=== PATIENT | female | born 1990 | race Caucasian/White ===

== ENCOUNTER 2016-03-04 06:46 | Emergency (ER) | payer MEDICAID ==
[2015-12-09 14:51] VITALS: BMI 24.4
[~2016-03-04 06:46] MED LIST: HYDROCODON-ACE1 EAC7 PO; IBUPROFEN600 MG PO; NEURONTIN 300300 MG PO; NORMODYNE / TR100 MG PO; PAMELOR10 MG PO; PRENATAL COMPLE1 TAB PO; TYLENOL PM1 TAB PO
[2016-03-04 07:53] LABS: BASOPHILS 0.4 % (0.0-2.0); EOSINOPHILS 0.4 % (0-7); HEMATOCRIT 38.3 % (36.0-48.0); HEMOGLOBIN 12.4 g/dL (12-16); IMMATURE GRANULOCYTES 0.3 % (0-5); LYMPHOCYTES 13.6 % (15-50); MCH 26.2 pg (26.0-34.0); MCHC 32.4 g/dL (31.0-37.0); MEAN PLATELET VOLUME 10.3 fL (7.4-10.4); MONOCYTES 2.6 % (2-11); NEUTROPHILS 82.7 % (40-80); RBC 4.73 10x6/uL (4.00-5.40); RDW 15.1 % (11.5-14.5); WBC 11.4 10x3/uL (4.8-10.8)
[2016-03-04 07:54] LABS: ALBUMIN 4.6 g/dL (3.4-5.0); ALKALINE PHOSPHATASE 58 U/L (46-116); ALT (SGPT) 16 U/L (10-68); BILIRUBIN - TOTAL 0.91 mg/dL (0.2-1.3); CALC OSMOLALITY 279 mosm/kg (275-300); CALCIUM 9.2 mg/dL (8.5-10.1); CARBON DIOXIDE 24.5 mmol/L (21.0-32.0); CHLORIDE - SERUM 103 mmol/L (98-107); CREATININE - SERUM 0.8 mg/dL (0.6-1.3); GLUCOSE 108 mg/dL (74-106); LIPASE 90 U/L (73-393); POTASSIUM - SERUM 3.7 mmol/L (3.5-5.1); PROTEIN - SERUM 7.4 g/dL (6.4-8.2); SODIUM 138 mmol/L (136-145); UREA NITROGEN 20 mg/dL (7-18); eGFR NON AFRICAN AMERICAN > 90 mL/min (90-120)
[2016-03-04 07:56] LABS: PLATELET COUNT 392 10x3/uL (130-400)
[2016-03-04 08:06] LABS: APPEARANCE SLT CLOUDY (CLEAR); BACTERIA MODERATE /hpf (NONE SEEN); BILIRUBIN NEGATIVE (NEGATIVE); COLOR YELLOW (YELLOW); GLUCOSE NEGATIVE (NEGATIVE); KETONE NEGATIVE (NEGATIVE); LEUKOCYTE ESTERASE TRACE (NEGATIVE); MUCUS <1+ /lpf (NONE SEEN); NITRITE NEGATIVE (NEGATIVE); PROTEIN 2+ mg/dL (NEGATIVE); RED CELLS - URINE RARE /hpf (0-5); SPECIFIC GRAVITY 1.015 (1.005-1.020); UROBILINOGEN NORMAL (NORMAL); WHITE CELLS - URINE OCC /hpf (0-5)
== END 2016-03-04 08:51 | disposition home or self-care (01) ==
LOC: D.ER 06:46
PROVIDERS: Emergency Medicine
DX: A08.4 Viral intestinal infection, unspecified (principal); E86.0 Dehydration; M79.7 Fibromyalgia; F17.200 Nicotine dependence, unspecified, uncomplicated

== ENCOUNTER 2016-03-09 12:04 | Emergency (ER) | payer MEDICAID ==
[2015-12-09 14:51] VITALS: BMI 24.4
== END 2016-03-09 13:13 | disposition home or self-care (01) ==
LOC: D.ER 12:04
DX: L02.412 Cutaneous abscess of left axilla (principal); M79.7 Fibromyalgia; I10 Essential (primary) hypertension; F17.200 Nicotine dependence, unspecified, uncomplicated

== ENCOUNTER 2016-03-30 17:54 | Emergency (ER) | payer MEDICAID ==
[2015-12-09 14:51] VITALS: BMI 24.4
== END 2016-03-30 21:07 | disposition home or self-care (01) ==
LOC: D.ER 17:54
DX: L02.411 Cutaneous abscess of right axilla (principal); M79.7 Fibromyalgia; I10 Essential (primary) hypertension

== ENCOUNTER 2016-04-11 18:41 | Emergency (ER) | payer MEDICAID ==
[2015-12-09 14:51] VITALS: BMI 24.4
== END 2016-04-11 22:17 | disposition home or self-care (01) ==
LOC: D.ER 18:41
DX: L73.2 Hidradenitis suppurativa (principal); I10 Essential (primary) hypertension

== ENCOUNTER 2016-09-10 16:01 | Emergency (ER) | payer MEDICAID ==
[2015-12-09 14:51] VITALS: BMI 24.4
[2016-09-10 16:50] LABS: BASOPHILS 0.2 % (0-2); EOSINOPHILS 2.6 % (0-7); HEMATOCRIT 32.1 % (36.0-48.0); HEMOGLOBIN 10.2 g/dL (12-16); IMMATURE GRANULOCYTES 0.2 % (0-5); LYMPHOCYTES 23.2 % (15-50); MCH 24.9 pg (26.0-34.0); MCHC 31.8 g/dL (31.0-37.0); MCV 78.5 fL (80.0-100.0); MEAN PLATELET VOLUME 9.7 fL (7.4-10.4); MONOCYTES 6.4 % (2-11); NEUTROPHILS 67.4 % (40-80); RBC 4.09 10x6/uL (4.00-5.40); RDW 17.6 % (11.5-14.5); WBC 10.7 10x3/uL (4.8-10.8)
[2016-09-10 17:19] LABS: PLATELET COUNT 307 10x3/uL (130-400)
[2016-09-10 17:27] LABS: HCG SERUM POSITIVE (NEGATIVE)
== END 2016-09-10 19:55 | disposition home or self-care (01) ==
LOC: D.ER 16:01
PROVIDERS: Emergency Medicine
DX: O20.9 Hemorrhage in early pregnancy, unspecified (principal); O03.4 Incomplete spontaneous abortion without complication; F17.200 Nicotine dependence, unspecified, uncomplicated

== ENCOUNTER 2017-02-04 19:11 | Emergency (ER) | payer MEDICAID ==
[2015-12-09 14:51] VITALS: BMI 24.4
[2017-02-04 19:39] LABS: APPEARANCE TURBID (CLEAR); COLOR RED (YELLOW)
[2017-02-04 19:40] LABS: BACTERIA FEW /hpf (NONE SEEN); BILIRUBIN NEGATIVE (NEGATIVE); EPITHELIAL CELLS RARE /hpf (0-5); GLUCOSE NEGATIVE (NEGATIVE); KETONE NEGATIVE (NEGATIVE); NITRITE NEGATIVE (NEGATIVE); PROTEIN 2+ mg/dL (NEGATIVE); RED CELLS - URINE >50 /hpf (0-5); UROBILINOGEN NORMAL (NORMAL)
[2017-02-04 20:20] LABS: BASOPHILS 0.7 % (0-2); EOSINOPHILS 2.9 % (0-7); HEMATOCRIT 31.1 % (36.0-48.0); HEMOGLOBIN 9.5 g/dL (12-16); IMMATURE GRANULOCYTES 0.2 % (0-5); LYMPHOCYTES 25.2 % (15-50); MCH 21.5 pg (26.0-34.0); MCHC 30.5 g/dL (31.0-37.0); MCV 70.4 fL (80.0-100.0); MEAN PLATELET VOLUME 9.4 fL (7.4-10.4); MONOCYTES 8.9 % (2-11); NEUTROPHILS 62.1 % (40-80); RBC 4.42 10x6/uL (4.00-5.40); RDW 16.6 % (11.5-14.5)
[2017-02-04 20:24] LABS: PLATELET COUNT 456 10x3/uL (130-400)
== END 2017-02-04 21:09 | disposition home or self-care (01) ==
LOC: D.ER 19:11
PROVIDERS: Emergency Medicine
DX: F15.93 Other stimulant use, unspecified with withdrawal (principal); R11.10 Vomiting, unspecified; M25.50 Pain in unspecified joint

== ENCOUNTER 2017-02-05 11:13 | Emergency (ER) | payer MEDICAID ==
[2015-12-09 14:51] VITALS: BMI 24.4
[2017-02-05 15:29] LABS: UDS - AMPHET POSITIVE QUAL (NEGATIVE); UDS - BARB NEGATIVE QUAL (NEGATIVE); UDS - BENZO POSITIVE QUAL (NEGATIVE); UDS - COCAINE NEGATIVE QUAL (NEGATIVE); UDS - OPIATE POSITIVE QUAL (NEGATIVE); UDS - PCP NEGATIVE QUAL (NEGATIVE); UDS - THC POSITIVE QUAL (NEGATIVE)
[2017-02-05 15:52] LABS: ALBUMIN 4.7 g/dL (3.4-5.0); ALKALINE PHOSPHATASE 88 U/L (46-116); ALT (SGPT) 18 U/L (10-68); CALC OSMOLALITY 279 mosm/kg (275-300); CARBON DIOXIDE 27.1 mmol/L (21.0-32.0); CHLORIDE - SERUM 99 mmol/L (98-107); CREATININE - SERUM 0.9 mg/dL (0.6-1.3); GLUCOSE 101 mg/dL (74-106); POTASSIUM - SERUM 3.4 mmol/L (3.5-5.1); PROTEIN - SERUM 8.2 g/dL (6.4-8.2); SODIUM 139 mmol/L (136-145); UREA NITROGEN 17 mg/dL (7-18); eGFR NON AFRICAN AMERICAN 79 mL/min (90-120)
== END 2017-02-05 17:09 | disposition short-term general hospital (02) ==
LOC: D.ER 11:13
PROVIDERS: Emergency Medicine
DX: F23 Brief psychotic disorder (principal); F19.10 Other psychoactive substance abuse, uncomplicated; F17.200 Nicotine dependence, unspecified, uncomplicated

== ENCOUNTER 2017-03-22 13:29 | Emergency (ER) | payer MEDICAID ==
[2015-12-09 14:51] VITALS: BMI 24.4
== END 2017-03-22 14:07 | disposition home or self-care (01) ==
LOC: D.ER 13:29
DX: B86 Scabies (principal); F17.200 Nicotine dependence, unspecified, uncomplicated

== ENCOUNTER 2017-03-30 15:19 | Emergency (ER) | payer MEDICAID ==
[2015-12-09 14:51] VITALS: BMI 24.4
== END 2017-03-30 16:53 | disposition home or self-care (01) ==
LOC: D.ER 15:19
DX: H66.92 Otitis media, unspecified, left ear (principal); H92.02 Otalgia, left ear; F17.200 Nicotine dependence, unspecified, uncomplicated

== ENCOUNTER 2017-06-10 22:08 | Emergency (ER) | payer MEDICAID ==
[2015-12-09 14:51] VITALS: BMI 24.4
[2017-06-10 22:57] LABS: BASOPHILS 0.6 % (0-2); EOSINOPHILS 1.5 % (0-7); HEMATOCRIT 32.5 % (36.0-48.0); HEMOGLOBIN 9.4 g/dL (12-16); IMMATURE GRANULOCYTES 0.2 % (0-5); LYMPHOCYTES 15.7 % (15-50); MCH 21.3 pg (26.0-34.0); MCHC 28.9 g/dL (31.0-37.0); MCV 73.7 fL (80.0-100.0); MEAN PLATELET VOLUME 9.1 fL (7.4-10.4); MONOCYTES 6.4 % (2-11); NEUTROPHILS 75.6 % (40-80); PLATELET COUNT 393 10x3/uL (130-400); RBC 4.41 10x6/uL (4.00-5.40); RDW 17.5 % (11.5-14.5); WBC 12.6 10x3/uL (4.8-10.8)
[2017-06-10 23:06] LABS: ALBUMIN 4.5 g/dL (3.4-5.0); ALKALINE PHOSPHATASE 71 U/L (46-116); ALT (SGPT) 11 U/L (10-68); BILIRUBIN - TOTAL 0.25 mg/dL (0.2-1.3); CALC OSMOLALITY 277 mosm/kg (275-300); CALCIUM 9.7 mg/dL (8.5-10.1); CARBON DIOXIDE 28.4 mmol/L (21.0-32.0); CHLORIDE - SERUM 103 mmol/L (98-107); CREATININE - SERUM 0.9 mg/dL (0.6-1.3); GLUCOSE 100 mg/dL (74-106); POTASSIUM - SERUM 3.7 mmol/L (3.5-5.1); PROTEIN - SERUM 7.8 g/dL (6.4-8.2); SODIUM 140 mmol/L (136-145); UREA NITROGEN 10 mg/dL (7-18); eGFR NON AFRICAN AMERICAN 79 mL/min (90-120)
[2017-06-10 23:10] LABS: HCG URINE NEGATIVE (NEGATIVE)
[2017-06-10 23:14] LABS: APPEARANCE CLOUDY (CLEAR); BILIRUBIN NEGATIVE (NEGATIVE); COLOR YELLOW (YELLOW); GLUCOSE NEGATIVE (NEGATIVE); KETONE NEGATIVE (NEGATIVE); NITRITE NEGATIVE (NEGATIVE); PROTEIN NEGATIVE (NEGATIVE); SPECIFIC GRAVITY 1.005 (1.005-1.020); UROBILINOGEN NORMAL (NORMAL)
[2017-06-10 23:16] LABS: AMORPHOUS SEDIMENT >1+ /lpf (NONE SEEN); BACTERIA MODERATE /hpf (NONE SEEN); EPITHELIAL CELLS 0-5 /hpf (0-5); RED CELLS - URINE 0-5 /hpf (0-5); WHITE CELLS - URINE 0-5 /hpf (0-5)
== END 2017-06-10 23:07 | disposition left against medical advice (07) ==
LOC: D.ER 22:08
PROVIDERS: Family Medicine
DX: R10.84 Generalized abdominal pain (principal)

== ENCOUNTER 2017-09-01 06:17 | Emergency (ER) | payer MEDICAID ==
[~2017-09-01] VITALS: Ht 175.3 cm; Wt 77.3 kg
[2017-09-01 06:25] VITALS: Ht 175.3 cm; Wt 77.3 kg
[2017-09-01] MEDS ORDERED: CELEXA10 MG PO (06:27)
[2017-09-01] MEDS ORDERED: DESERYL100 MG PO (06:27)
[2017-09-01] MEDS ORDERED: ULTRAM50 MG PO (06:27)
[2017-09-01] MEDS ORDERED: NEURONTIN 300300 MG PO (06:27)
[2017-09-01 07:21] LABS: BASOPHILS 0.2 % (0-2); HEMATOCRIT 30.9 % (36.0-48.0); HEMOGLOBIN 8.7 g/dL (12-16); IMMATURE GRANULOCYTES 0.2 % (0-5); LYMPHOCYTES 3.5 % (15-50); MCH 20.7 pg (26.0-34.0); MCHC 28.2 g/dL (31.0-37.0); MCV 73.4 fL (80.0-100.0); MEAN PLATELET VOLUME 9.8 fL (7.4-10.4); MONOCYTES 2.7 % (2-11); NEUTROPHILS 92.4 % (40-80); PLATELET COUNT 345 10x3/uL (130-400); RBC 4.21 10x6/uL (4.00-5.40); RDW 16.4 % (11.5-14.5); WBC 11.2 10x3/uL (4.8-10.8)
[2017-09-01 07:22] LABS: ALBUMIN 3.8 g/dL (3.4-5.0); ALKALINE PHOSPHATASE 64 U/L (46-116); ALT (SGPT) 9 U/L (10-68); CALC OSMOLALITY 280 mosm/kg (275-300); CALCIUM 8.2 mg/dL (8.5-10.1); CARBON DIOXIDE 23.8 mmol/L (21.0-32.0); CHLORIDE - SERUM 106 mmol/L (98-107); CREATINE KINASE 58 UL (21-215); CREATININE - SERUM 0.9 mg/dL (0.6-1.3); GLUCOSE 121 mg/dL (74-106); POTASSIUM - SERUM 3.4 mmol/L (3.5-5.1); PROTEIN - SERUM 6.6 g/dL (6.4-8.2); SODIUM 140 mmol/L (136-145); UREA NITROGEN 14 mg/dL (7-18); eGFR NON AFRICAN AMERICAN 79 mL/min (90-120)
[2017-09-01 08:06] LABS: APPEARANCE CLEAR (CLEAR); COLOR YELLOW (YELLOW); NITRITE NEGATIVE (NEGATIVE); PROTEIN NEGATIVE (NEGATIVE)
[2017-09-01 08:07] LABS: BILIRUBIN NEGATIVE (NEGATIVE); GLUCOSE NEGATIVE (NEGATIVE); KETONE NEGATIVE (NEGATIVE); RED CELLS - URINE RARE /hpf (0-5); UROBILINOGEN NORMAL (NORMAL); WHITE CELLS - URINE 0-5 /hpf (0-5)
[2017-09-01 08:08] LABS: BACTERIA FEW /hpf (NONE SEEN)
[2017-09-01 08:51] LABS: UDS - AMPHET NEGATIVE QUAL (NEGATIVE); UDS - BARB NEGATIVE QUAL (NEGATIVE); UDS - BENZO NEGATIVE QUAL (NEGATIVE); UDS - COCAINE NEGATIVE QUAL (NEGATIVE); UDS - OPIATE NEGATIVE QUAL (NEGATIVE); UDS - PCP NEGATIVE QUAL (NEGATIVE); UDS - THC NEGATIVE QUAL (NEGATIVE)
[2017-09-01 09:30] VITALS: BP 113/60
[2017-09-01 12:08] LABS: HCG URINE NEGATIVE (NEGATIVE)
== END 2017-09-01 09:30 | disposition home or self-care (01) ==
LOC: D.ER 06:17
PROVIDERS: Family Medicine
DX: T67.2XXA Heat cramp, initial encounter (principal); X58.XXXA Exposure to other specified factors, initial encounter; Y93.89 Activity, other specified; Y92.89 Other specified places as the place of occurrence of the external cause; R11.0 Nausea; R42 Dizziness and giddiness; F17.200 Nicotine dependence, unspecified, uncomplicated

== ENCOUNTER 2017-10-09 17:43 | Inpatient (IN) | payer MEDICAID ==
[~2017-10-09] VITALS: Ht 175.3 cm; Wt 70.8 kg
--- NOTE | ~2017-10-09 | DS ---
PATIENT:CLEMENTINA MARTELL :86 MEDICAL RECORD: [id number] DISCHARGE SUMMARY ADMISSION DATE: 10/09/17 DISCHARGE DATE: 10/10/17 HOSPITAL COURSE: Clementina is 26, she came in the night of the with an obvious large dental abscess and swelling in the right neck. She had just eaten shortly before arrival, so set her up in the morning for incision and drainage. She initially was fine with that and then right before she was to be taken to OR, she decided she had to go home, signed out AMA and went back to the room. They were giving her paperwork done for her to go home and then she talked to someone in her family, changed her mind and decided that she will get surgery done, but said she absolutely had to get done. She is not very committed to give about what the issues are as to why she feels like she has to get home immediately, could not stay in the hospital and told her to expect to stay 2 maybe 3 days something like that because of the severity of the abscess of infection. I really could not tell on talking to her what her main concerns were with or why. She was so upset and wanted to go home, but talked about the fact that with the severity of this infection, she would most likely end up this weekend back in this Emergency Room or another Emergency Room and basically have to get the same or more done to deal with this large abscess. She has been negotiating back and forth. She basically kind of agreed that she would get that done, but she had to go today, so just in her best interest, I felt like we could get the incision and drainage done before escalating into much more severe problem and put her on antibiotics and most likely she would do well, although she would have to come back if she was not improving. She went to the OR and we did an I&D intraorally lateral to the right mandible drained quite a bit of purulence, got cultures. She has been on IV antibiotics for several doses now and I am going to send her home on clindamycin, she is allergic to penicillin, and see her back as directed. TRANSINT:[id number] Voice Confirmation ID: [id number] DOCUMENT ID: [id number] AUGUSTINE GOLDSTEIN MD at 1254 CC: [id number] DICTATION DATE: 10/10/17 1425 GRANITE SANDBLASTER APPRENTICE: 10/10/17 1505 DIS IN 10/10/17 [place] [id number] [place] [id number]
--- NOTE | ~2017-10-09 | OP ---
PATIENT NAME: CLEMENTINA LOVE MEDICAL RECORD: [id number] :86 LOCATION:D.M2 D.2109 ADMISSION DATE:10/09/17 SURGEON: DARRIAN GOLDSTEIN MD DATE OF OPERATION: 10/10/2017 PREOPERATIVE DIAGNOSIS: Right neck abscess. POSTOPERATIVE DIAGNOSIS: Right neck abscess. PROCEDURE: Incision and drainage of neck abscess. SURGEON: Darrian Goldstein MD ANESTHESIA: General orotracheal. BLOOD LOSS: Less than 5 cc. SPECIMEN: Cultures. DRAINS: None. COMPLICATIONS: None. DISPOSITION: Recovery, stable. HISTORY: Clementina Love presented with an abscess secondary to a dental infection in the right upper neck, around the mandible. She was initially taken to the OR in the morning for incision and drainage, but decided to leave AMA. She went back to her room, and when she was about to go from the hospital, changed her mind, so was brought back in the afternoon when OR was available for incision and drainage. DESCRIPTION OF PROCEDURE: She was brought to the operating room, placed in the supine position, sedated and intubated by anesthesia. She was positioned, prepped and draped in the usual fashion. Neck was examined. With palpation, she had a mass over angle of the mandible and lateral body of the mandible on the right side with no cellulitis or changes to the skin. Intraorally, she had some poor dentition, but no obvious tooth as the source of infection. The floor of the mouth was normal. Palate and pharynx were normal and symmetric. At the right lower gingival buccal sulcus, she had obvious mass and soft fluctuance. Deep on to the mandible, an incision was made in the right lower gingival buccal sulcus after injecting with 1 cc of 1% lidocaine with 1:100,000 epinephrine. This was made with a #15 blade and then taken down to the mandible with a clamp and then, near the bottom of the mandible and inferior aspect of the mandible, the purulent cavity was encountered. About 5 cc of thick yellow purulence was obtained. Cultures were obtained. The wound was rinsed out. There was not much bleeding. No drain was placed. She was awakened, extubated, and transported to recovery in good condition. No complications. TRANSINT:[id number] Voice Confirmation ID: [id number] DOCUMENT ID: [id number] OPERATIVE REPORT [id number] LOVE,DARRIAN ARENAS MD at 1254 CC: [id number] DICTATION DATE: 10/10/17 1405 SHOE STAMPER: 10/10/17 1420 DIS IN 10/10/17 [place] [id number] [place] [id number]
--- NOTE | ~2017-10-09 | HP ---
PATIENT: CLEMENTINA MARTELL MEDICAL RECORD: [id number] ACCOUNT: [id number] LOCATION:[address] : 86 ADMISSION DATE: 10/09/17 HISTORY AND PHYSICAL EXAMINATION HISTORY OF PRESENT ILLNESS: Clementina is a 26-year-old female started having a tooth abscess right on the right mandible tooth about 3 days ago. It has become progressively more swollen, tender, difficult to open her mouth with a significant right facial swelling. PAST MEDICAL HISTORY: No significant medical problems. ALLERGIES: PENICILLIN. PHYSICAL EXAMINATION: GENERAL: She is in some distress, quite a bit of pain, holding her jaw. EYES: Sclerae and conjunctivae are normal. EARS: Canals and TMs are normal. NOSE: No mass, polyps, or drainage. ORAL CAVITY AND OROPHARYNX: She has significant trismus, poor dentition. Tongue protrudes in midline. Floor of the mouth is normal. The pharynx is normal. NECK: She has swelling over the right body of the mandible on exam. She has an abscess lateral to the mandible along the entire body of the mandible and extending below the angle, but not really medial or in the floor of the mouth. IMPRESSION: Right neck abscess. PLAN: Incision and drainage of abscess. I will go ahead and start her on clindamycin and Rocephin. She ate 2 hours ago, so we are going to have to wait at least 4-6 hours more to drain that. We are going to start her on medications and get her to the OR and drain as soon as possible. TRANSINT:[id number] Voice Confirmation ID: [id number] DOCUMENT ID: [id number] AUGUSTINE GOLDSTEIN MD at 1254 CC: [id number] DICTATION DATE: 10/09/172141 OCCUPATIONAL HEALTH NURSE MANAGER: 10/09/17 2250 DIS IN 10/10/17 [place] [address]
[~2017-10-09 17:43] MED LIST changes: +CELEXA10 MG PO; +DESERYL100 MG PO; +ULTRAM50 MG PO
[2017-10-09 18:52] LABS: BASOPHILS 0.3 % (0-2); EOSINOPHILS 2.4 % (0-7); HEMATOCRIT 30.9 % (36.0-48.0); HEMOGLOBIN 8.5 g/dL (12-16); IMMATURE GRANULOCYTES 0.1 % (0-5); LYMPHOCYTES 9.2 % (15-50); MCH 20.3 pg (26.0-34.0); MCHC 27.5 g/dL (31.0-37.0); MCV 73.9 fL (80.0-100.0); MEAN PLATELET VOLUME 9.8 fL (7.4-10.4); MONOCYTES 4.7 % (2-11); NEUTROPHILS 83.3 % (40-80); PLATELET COUNT 343 10x3/uL (130-400); RBC 4.18 10x6/uL (4.00-5.40); RDW 17.1 % (11.5-14.5); WBC 8.7 10x3/uL (4.8-10.8)
[2017-10-09 19:11] LABS: ALBUMIN 3.6 g/dL (3.4-5.0); ALKALINE PHOSPHATASE 69 U/L (46-116); ALT (SGPT) 12 U/L (10-68); BILIRUBIN - TOTAL 0.22 mg/dL (0.2-1.3); CALC OSMOLALITY 268 mosm/kg (275-300); CALCIUM 8.4 mg/dL (8.5-10.1); CARBON DIOXIDE 30.2 mmol/L (21.0-32.0); CHLORIDE - SERUM 100 mmol/L (98-107); CREATININE - SERUM 0.5 mg/dL (0.6-1.3); GLUCOSE 91 mg/dL (74-106); POTASSIUM - SERUM 3.6 mmol/L (3.5-5.1); PROTEIN - SERUM 7.2 g/dL (6.4-8.2); SODIUM 136 mmol/L (136-145); UREA NITROGEN 5 mg/dL (7-18); eGFR NON AFRICAN AMERICAN > 90 mL/min (90-120)
[2017-10-09 22:27] LABS: HCG SERUM NEGATIVE (NEGATIVE)
[2017-10-09 22:30] VITALS: BP 113/69
[2017-10-10] VITALS (7 sets, daily range): BP systolic 117–143; BP diastolic 64–91; Ht 175.3 cm; Wt 70.8 kg
[2017-10-10] MEDS ORDERED: HYDROCODON-ACE1 EAC7 PO (15:57)
[2017-10-10] MEDS ORDERED: CLEOCIN HCL300 MG PO (15:57)
== END 2017-10-10 17:10 | disposition home or self-care (01) | DRG 138 ==
LOC: D.ER 17:43 → D.M2 21:59 → D.EDHOLD 21:59 → D.M2 22:57
PROVIDERS: Anesthesiology; Family Medicine; Otolaryngology
PROC: 0W950ZZ Drainage of Lower Jaw, Open Approach (ICD-10-PCS; principal; 2017-10-10 08:30)
DX: M27.2 Inflammatory conditions of jaws (principal); F32.9 Major depressive disorder, single episode, unspecified; Z72.0 Tobacco use

== ENCOUNTER 2018-06-09 22:36 | Emergency (ER) | payer MEDICAID ==
[~2018-06-09] VITALS: Ht 175.3 cm; Wt 74.8 kg
[~2018-06-09 22:36] MED LIST changes: +CLEOCIN HCL300 MG PO
[2018-06-09 22:46] VITALS: Ht 175.3 cm; Wt 74.8 kg
[2018-06-10 00:45] LABS: HEMATOCRIT 27.3 % (36.0-48.0); HEMOGLOBIN 7.7 g/dL (12-16); LYMPHOCYTES 28.4 % (15-50); MCH 18.5 pg (26.0-34.0); MCHC 28.2 g/dL (31.0-37.0); MCV 65.6 fL (80.0-100.0); MEAN PLATELET VOLUME 8.5 fL (7.4-10.4); NEUTROPHILS 63.7 % (40-80); PLATELET COUNT 371 10x3/uL (130-400); RBC 4.16 10x6/uL (4.00-5.40); RDW 17.1 % (11.5-14.5); WBC 6.9 10x3/uL (4.8-10.8)
[2018-06-10 00:50] LABS: APPEARANCE SL CLDY (CLEAR); BILIRUBIN NEGATIVE (NEGATIVE); COLOR YELLOW (YELLOW); GLUCOSE NEGATIVE (NEGATIVE); KETONE NEGATIVE (NEGATIVE); NITRITE NEGATIVE (NEGATIVE); PROTEIN NEGATIVE (NEGATIVE); UROBILINOGEN NORMAL (NORMAL)
[2018-06-10 00:51] LABS: AMORPHOUS SEDIMENT <1+ /lpf (NONE SEEN); BACTERIA MANY /hpf (NONE SEEN); MUCUS <1+ /lpf (NONE SEEN); WHITE CELLS - URINE 0-5 /hpf (0-5)
[2018-06-10 01:01] LABS: HCG SERUM POSITIVE (NEGATIVE)
[2018-06-10 01:09] LABS: UDS - AMPHET POSITIVE QUAL (NEGATIVE); UDS - BARB NEGATIVE QUAL (NEGATIVE); UDS - BENZO NEGATIVE QUAL (NEGATIVE); UDS - COCAINE NEGATIVE QUAL (NEGATIVE); UDS - OPIATE NEGATIVE QUAL (NEGATIVE); UDS - PCP NEGATIVE QUAL (NEGATIVE); UDS - THC NEGATIVE QUAL (NEGATIVE)
[2018-06-10 01:25] LABS: ALBUMIN 4.4 g/dL (3.4-5.0); ALKALINE PHOSPHATASE 57 U/L (46-116); ALT (SGPT) 13 U/L (10-68); BILIRUBIN - TOTAL 0.26 mg/dL (0.2-1.3); CALC OSMOLALITY 272 mosm/kg (275-300); CALCIUM 8.3 mg/dL (8.5-10.1); CARBON DIOXIDE 27.1 mmol/L (21.0-32.0); CHLORIDE - SERUM 101 mmol/L (98-107); CKMB 1.9 U/L (0.0-3.6); CREATINE KINASE 122 UL (21-215); CREATININE - SERUM 0.7 mg/dL (0.6-1.3); GLUCOSE 101 mg/dL (74-106); PROTEIN - SERUM 7.7 g/dL (6.4-8.2); SODIUM 136 mmol/L (136-145); UREA NITROGEN 15 mg/dL (7-18); eGFR NON AFRICAN AMERICAN > 90 mL/min (90-120)
[2018-06-10 01:39] LABS: POTASSIUM - SERUM 2.7 mmol/L (3.5-5.1); TROPONIN-I < 0.017 ng/mL (0.000-0.060)
[2018-06-10 02:43] VITALS: BP 145/90
== END 2018-06-10 02:45 | disposition left against medical advice (07) ==
LOC: D.ER 22:36
PROVIDERS: Family Medicine
DX: O99.320 Drug use complicating pregnancy, unspecified trimester (principal); F15.10 Other stimulant abuse, uncomplicated; Z3A.00 Weeks of gestation of pregnancy not specified; E87.6 Hypokalemia; D50.9 Iron deficiency anemia, unspecified

== ENCOUNTER 2018-06-10 04:54 | Emergency (ER) | payer MEDICAID ==
[~2018-06-10] VITALS: Ht 175.3 cm; Wt 75.0 kg
[2018-06-10 05:01] VITALS: Ht 175.3 cm; Wt 75.0 kg
[2018-06-10 06:25] VITALS: BP 141/90
== END 2018-06-10 06:27 | disposition home or self-care (01) ==
LOC: D.ER 04:54
DX: E87.6 Hypokalemia (principal)